=== PATIENT | female | born 1950 | race Caucasian/White ===

== ENCOUNTER → 2021-10-08 09:17 | Outpatient (BNVA) | payer MEDICARE, SELFPAY | PROVIDERS: PCP Nurse Practitioner; Visit Provider Nurse Practitioner Family | DX: E11.65 Type 2 diabetes mellitus with hyperglycemia (principal); I10 Essential (primary) hypertension; Z79.4 Long term (current) use of insulin; L03.115 Cellulitis of right lower limb | CPT/HCPCS: 80053; 82043; 83036 ==

== ENCOUNTER → 2022-02-22 11:13 | Outpatient (BNVA) | payer MEDICARE, SELFPAY | PROVIDERS: PCP Nurse Practitioner Family; Visit Provider Nurse Practitioner Family | DX: E11.65 Type 2 diabetes mellitus with hyperglycemia (principal); Z79.4 Long term (current) use of insulin; I10 Essential (primary) hypertension; J06.9 Acute upper respiratory infection, unspecified | CPT/HCPCS: 80053; 80061; 83036 ==

== ENCOUNTER 2022-03-24 09:03 | Outpatient (CLI) | payer MEDICARE, SELFPAY ==
--- NOTE | 2022-03-24 09:23 | CT_ITS ---
WS: [id number] CT HEAD TECHNIQUE: Noncontrast and contrast-enhanced CT of the head. CLINICAL INFORMATION: R56.9 - Unspecified convulsions COMPARISON: None. DLP: 1964.[address] scans at [facility] use at least one of these dose optimization techniques: automated e xposure control; mA and/or kV adjustment per patient size (includes targeted exams where dose is matc hed to clinical indication); or iterative reconstruction. FINDINGS: No evidence of intracranial hemorrhage or mass effect. Ventricular system and basal cisterns are grewal nt. Moderate small vessel changes. Moderate parenchymal volume loss. No abnormal intracranial enhance ment. Cavernous carotid calcification. No extra-axial fluid collections. No evidence of mass or mass effect. Normal visualized soft tissues. Mastoid air cells well aerated. Partially visualized paranasal sinuses are well aerated. CT/CT head wo/w con [id number] IMPRESSION: 1. No evidence of intracranial hemorrhage or mass effect. 2. No abnormal intracranial enhancement. 3. Moderate small vessel changes with moderate parenchymal volume loss. 4. No other significant findings.
[2022-03-24] MEDS: iohexol 300 mg/mL 100 mL Btl IV (10:01)
== END 2022-03-24 09:04 | disposition home or self-care (01) ==
PROVIDERS: PCP Nurse Practitioner Family; Visit Provider Nurse Practitioner Family
DX: R56.9 Unspecified convulsions (principal)
CPT/HCPCS: 70470